=== PATIENT | male | born 1945 | race Caucasian/White ===

== ENCOUNTER 2023-10-21 08:35 | Day surgery (SDC) | payer MEDICARE, SELFPAY ==
[2023-10-21] VITALS (15 sets, daily range): BP systolic 118–171; BP diastolic 63–82; BMI 25.9
[2023-10-21 09:20] LABS: Hematocrit 33.4 % (39.0-52.0); Hemoglobin 10.8 g/dL (13.0-18.0); Mean Corp Hgb Conc. 32.3 g/dL (33.0-37.0); Mean Corpuscular Hgb 28.7 pg (27.0-31.0); Mean Corpuscular Volume 88.8 fL (80.0-94.0); Mean Platelet Volume 10.5 fL (7.4-10.4); Platelet Count 154 10^3/uL (130-400); Red Blood Cell Count 3.76 10^6/uL (4.70-6.10); Red Cell Dist. Width 19.9 % (11.5-14.5); White Blood Cell Count 9.4 10^3/uL (4.8-10.8)
[2023-10-21 09:30] LABS: INR 1.06; PT 14.1 Sec (11.4-14.6)
[2023-10-21 09:31] LABS: APTT 42.7 Sec (23.4-35.0)
[2023-10-21 09:45] LABS: Blood Urea Nitrogen 27 mg/dl (9-20); Carbon Dioxide 30 mmol/L (22-30); Chloride 96 mmol/L (98-107); Estimated Creatinine Clearance 9 ml/min; Glucose 97 mg/dl (70-99); Sodium 137 mmol/L (135-145); eGFR 8.74
[2023-10-21] MEDS: BACTROBAN NASAL 1 GRAM NASAL (10:06)
[2023-10-21] MEDS: NSS 500 IV (10:07)
[2023-10-21] MEDS: PERIDEX 0.12% ORAL RINSE 15 ML PO (10:07)
--- NOTE | 2023-10-21 11:31 | W.SUR.PREOP ---
Pre-Operative Surgical Note
-
I have examined this patient prior to the performance of the scheduled procedure.
The patient's condition is unchanged from the time of the current History and
Physical and the patient is able to undergo the scheduled procedure.
--- NOTE | 2023-10-21 12:34 | W.PA-PDMP ---
[place]-PDMP
-
Checked the [place]- Prescription Drug Monitoring Program website, no red flags identified; safe to proceed with prescription.
[2023-10-21 13:59] LABS: Glucose - Point of Care 114 mg/dl (70-99)
--- NOTE | 2023-10-21 15:13 | OR.RPT ---
Operative Report
Operative Report
Date of Operation: 10/21/2023
Pre Op Diagnosis: Upper extremity brachiobasilic AV fistula (status post 1st stage of planned 2 stage basilic vein transposition)
Post Op Diagnosis: Upper extremity brachiobasilic AV fistula (status post 1st stage of planned 2 stage basilic vein transposition)
Procedure: Revision of right upper extremity brachiobasilic AV fistula with transposition of the basilic vein (second stage BVT)
Surgeon: Baldemar Becerra III, MD
Hooker Inspector: Manjinder Escamilla MD PGY-1
Anesthesia: General
Complications: None
Estimated Blood Loss: Less than 20 cc
History and Indications for Procedure: 78-year-old male status post first stage of a planned two-stage basilic vein transposition. We brought him to the operating room for revision and superficialization.
Procedure in Detail: Killian Luis was correctly identified and placed supine on the operating table. After adequate induction of anesthesia the right arm was abducted 90 degrees. A timeout procedure was performed with the nursing and anesthesia
staff confirming the patient's identity and the nature and laterality of the procedure. The basilic vein was marked in the upper arm with ultrasound guidance. The arm was then circumferentially prepped and draped in the usual sterile fashion. We
made an incision over the medial upper arm. The entire basilic vein was dissected with careful sharp dissection. All branches were ligated and divided between ties and metal clips. The vein was good caliber along the entire course and had an
excellent thrill. Once the entire vein had been carefully dissected we then created a gentle curved tunnel lateral to the incision over the bicep with a large clamp. Proximal control was obtained on the vein with a curved profunda clamp. The vein
was marked and then transected near the arterial anastomosis. The vein was then brought through the tunnel carefully. The two ends of the vein were anastomosed to one another in an end-to-end fashion using a running 7-0 Prolene suture. At the
completion of the anastomosis the clamp was released and flow restored through the fistula. There was an excellent thrill in the tunnel. The suture line was inspected for hemostasis and this was achieved. The wound was irrigated with warm saline
solution. Hemostasis was achieved in the wound bed. The wound was then closed in multiple layers and sterile dressings applied. The patient had an easily palpable thrill in the tunnel and a palpable radial pulse at the wrist at the conclusion of the
case.
Attestation: I was present and responsible for the entire procedure
Signed:
Baldemar Becerra III, MD
[facility] Vascular Surgery
[phone] (qgsk)
--- NOTE | 2023-10-21 15:21 | W.IMMPOSTOP ---
Surgical Immed Post Op Note
-
Primary Surgeon: Baldemar Becerra III, MD
Assisting Surgeon: Manjinder Escamilla MD
Pre-op Diagnosis: AV Fistula
Post-op Diagnosis: AV Fistula s/p superficilization
Procedure Performed: Brachiobasilic superficilization (Stage 2)
Anesthesia Type: General
Specimen / Cultures: NA
Estimated Blood Loss: 12cc
Complications: None
Operative Findings: Fistula tunneled superficially through SubQ tissue and basilic vein re-anastamosed in an end-end fashion using 7-0 prolene. No complications.
== END 2023-10-21 15:45 | disposition home or self-care (01) ==
LOC: CATH 08:35
PROVIDERS: ATTENDING PHYSICIAN Surgery Vascular Surgery; FAMILY PHYSICIAN Internal Medicine
DX: I13.11 Hypertensive heart and chronic kidney disease without heart failure, with stage 5 chronic kidney disease, or end stage renal disease (principal); N18.6 End stage renal disease; Z49.01 Encounter for fitting and adjustment of extracorporeal dialysis catheter; J44.9 Chronic obstructive pulmonary disease, unspecified; E11.22 Type 2 diabetes mellitus with diabetic chronic kidney disease; Z72.0 Tobacco use
CPT/HCPCS: 36832; 80048; 82962; 85027; 85610; 85730; 86850; 86900; 86901

== ENCOUNTER → 2023-11-04 13:02 | Outpatient (REF) | payer MEDICARE, SELFPAY | LOC: RAD 13:02 | PROVIDERS: ATTENDING PHYSICIAN Physician Assistant; FAMILY PHYSICIAN Internal Medicine | DX: I77.0 Arteriovenous fistula, acquired (principal) | CPT/HCPCS: 93990 ==

== ENCOUNTER → 2023-11-26 09:44 | Outpatient (REF) | payer MEDICARE, SELFPAY | LOC: RAD 09:44 | PROVIDERS: ATTENDING PHYSICIAN Surgery Vascular Surgery; FAMILY PHYSICIAN Internal Medicine | DX: I71.43 Infrarenal abdominal aortic aneurysm, without rupture (principal); I77.9 Disorder of arteries and arterioles, unspecified; I65.23 Occlusion and stenosis of bilateral carotid arteries | CPT/HCPCS: 76770; 93880; 93922; 93925 ==

== ENCOUNTER → 2024-01-05 10:29 | Outpatient (REF) | payer MEDICARE, SELFPAY ==
--- NOTE | 2024-01-05 11:11 | PTCARENOTE ---
1033 Brought to patient care area via wheelchair. Patient identifed. Right chest dialysis catheter in place, functioning fistula in upper arm.
--- NOTE | 2024-01-05 11:13 | PTCARENOTE ---
1045 Catheter pulled as per order by IRAD technologist and site dressed. Instruction to stay for observation.
== END ==
LOC: RADI 10:29
PROVIDERS: ATTENDING PHYSICIAN Specialist
DX: Z49.01 Encounter for fitting and adjustment of extracorporeal dialysis catheter (principal)
CPT/HCPCS: 36589

== ENCOUNTER → 2024-01-28 12:45 | Outpatient (REF) | payer MEDICARE, SELFPAY | LOC: RAD 12:45 | PROVIDERS: ATTENDING PHYSICIAN Surgery Vascular Surgery; FAMILY PHYSICIAN Internal Medicine | DX: I77.0 Arteriovenous fistula, acquired (principal) | CPT/HCPCS: 93990 ==

== ENCOUNTER → 2024-03-26 10:37 | Outpatient (REF) | payer MEDICARE, SELFPAY ==
--- NOTE | 2024-03-26 11:33 | PTCARENOTE ---
tunneled hd cath removed bedside by Malik Davison RTR. tolerated well. dressing CDI after 10 mins. instructed patient to call with concerns. given general discharge instructions.
== END ==
LOC: RADI 10:37
PROVIDERS: ATTENDING PHYSICIAN Student in an Organized Health Care Education/Training Program; FAMILY PHYSICIAN Internal Medicine
DX: Z49.01 Encounter for fitting and adjustment of extracorporeal dialysis catheter (principal); N18.6 End stage renal disease
CPT/HCPCS: 36589

== ENCOUNTER → 2024-05-12 14:45 | Outpatient (REF) | payer MEDICARE, SELFPAY | LOC: DHVS 14:45 | PROVIDERS: ATTENDING PHYSICIAN Surgery Vascular Surgery; FAMILY PHYSICIAN Internal Medicine | DX: I71.43 Infrarenal abdominal aortic aneurysm, without rupture (principal) | CPT/HCPCS: 76770 ==

== ENCOUNTER → 2024-11-03 10:34 | Outpatient (REF) | payer OTHER, MEDICARE, SELFPAY | LOC: OLAB 10:34 | PROVIDERS: ATTENDING PHYSICIAN Specialist | DX: N18.6 End stage renal disease (principal) | CPT/HCPCS: 36415; 84132 ==

== ENCOUNTER → 2024-11-11 08:53 | Outpatient (REF) | payer MEDICARE, SELFPAY | LOC: DHVS 08:53 | PROVIDERS: ATTENDING PHYSICIAN Registered Nurse; FAMILY PHYSICIAN Surgery Vascular Surgery | DX: I77.9 Disorder of arteries and arterioles, unspecified (principal); I65.23 Occlusion and stenosis of bilateral carotid arteries; I71.43 Infrarenal abdominal aortic aneurysm, without rupture | CPT/HCPCS: 76770; 93880; 93922; 93925 ==

== ENCOUNTER → 2024-11-30 06:47 | Outpatient (REF) | payer MEDICARE, SELFPAY | LOC: RAD 06:47 | PROVIDERS: ATTENDING PHYSICIAN Registered Nurse; FAMILY PHYSICIAN Internal Medicine | DX: I71.43 Infrarenal abdominal aortic aneurysm, without rupture (principal) | CPT/HCPCS: 74174; Q9967 ==

== ENCOUNTER 2025-01-07 07:04 | Inpatient (IN) | payer MEDICARE, SELFPAY ==
[2024-12-30 09:14] VITALS: BMI 24.8
[2024-12-30 09:56] LABS: % Basophils 0.7 % (0-2); % Eosinophils 5.1 % (0-6); % Immature Granulocytes 0.1 % (0-0.5); % Lymphocytes 18.7 % (20.5-51.1); % Monocytes 11.4 % (1.7-9.3); Absolute Basophils 0.1 10^3/uL (0-0.2); Absolute Eosinophils 0.4 10^3/uL (0-0.7); Absolute Lymphocytes 1.3 10^3/uL (1.2-3.4); Absolute Monocytes 0.8 10^3/uL (0.1-0.6); Absolute Neutrophils 4.5 10^3/uL (1.4-6.5); Blood Urea Nitrogen 32 mg/dl (9-20); Calcium 9.2 mg/dl (8.4-10.2); Carbon Dioxide 38 mmol/L (22-30); Chloride 92 mmol/L (98-107); Estimated Creatinine Clearance 8 ml/min; Glucose 97 mg/dl (70-99); Hematocrit 37.2 % (39.0-52.0); Hemoglobin 11.7 g/dL (13.0-18.0); Mean Corp Hgb Conc. 31.5 g/dL (33.0-37.0); Mean Corpuscular Hgb 32.6 pg (27.0-31.0); Mean Corpuscular Volume 103.6 fL (80.0-94.0); Mean Platelet Volume 10.1 fL (7.4-10.4); Nucleated Red Blood Cells % 0 % (-); Platelet Count 148 10^3/uL (130-400); Potassium 4.9 mmol/L (3.5-5.1); Red Blood Cell Count 3.59 10^6/uL (4.70-6.10); Red Cell Dist. Width 15.2 % (11.5-14.5); Sodium 143 mmol/L (135-145); eGFR 7.36
[2024-12-30 10:02] LABS: INR 0.99; PT 13.6 Sec (11.4-14.6)
[2024-12-30 10:03] LABS: APTT 35.6 Sec (23.4-35.0)
[2025-01-07] VITALS (11 sets, daily range): BP systolic 122–167; BP diastolic 55–82; BMI 24.5
[2025-01-07] MEDS: BACTROBAN NASAL 1 GRAM NASAL (08:06)
[2025-01-07] MEDS: PERIDEX 0.12% ORAL RINSE 15 ML PO (08:07)
[2025-01-07] MEDS: VENTOLIN NEBULES 2.5 MG INH ×2 (08:26→15:27)
[2025-01-07 10:01] LABS: ACT-LR - POC 252 Seconds (116-155)
[2025-01-07 10:10] LABS: Glucose - Point of Care 124 mg/dl (70-99)
[2025-01-07 10:58] LABS: ACT-LR - POC 287 Seconds (116-155)
[2025-01-07 11:05] LABS: Glucose - Point of Care 119 mg/dl (70-99)
[2025-01-07 11:40] LABS: Glucose - Point of Care 131 mg/dl (70-99)
--- NOTE | 2025-01-07 11:47 | OR.RPT ---
Operative Report
Operative Report
Date of Operation: 01/07/2025
Pre Op Diagnosis:
1. Abdominal aortic aneurysm, juxtarenal
2. End-stage renal disease requiring hemodialysis
Post Op Diagnosis:
1. Abdominal aortic aneurysm, juxtarenal
2. End-stage renal disease requiring hemodialysis
Procedure:
1. Aortic aneurysm repair using Endologix ALTO device:
34 mm main body (right femoral access)
28 mm x 140 mm Ovation limb (right iliac)
14 mm x 120 mm, 12 mm x 160 mm Ovation limbs (left iliac)
2. Balloon angioplasty of right common iliac artery to facilitate endovascular device delivery
3. Diagnostic aortobiiliac arteriogram
4. Ultrasound-guided bilateral percutaneous common femoral artery access
5. Bilateral Pro-glide femoral artery access closure
Surgeon: Baldemar Becerra III, MD
Industrial Organization Manager: Nigel Jensen MD PGY1
Anesthesia: General
Complications: None
Estimated Blood Loss: 30 cc
History and Indications for Procedure: 79-year-old male with juxtarenal abdominal aortic aneurysm.
Procedure in Detail: Killian Luis was correctly identified and placed supine on the operating table. After adequate induction of anesthesia the abdomen, pelvis and bilateral groins were positioned, prepped and draped in the usual sterile
fashion. Preoperative antibiotics were administered. A timeout procedure was performed with the nursing and anesthesia staff confirming the patients identity as well as the nature and laterality of the procedure.
Under ultrasound guidance, bilateral femoral artery sheath access was obtained. The arteries were patent and without calcification anteriorly. Some calcified plaque was identified bilaterally along the posterior wall. Ultrasound images of the
femoral arteries were saved to the medical record. A pre-close technique was performed bilaterally with 2 offset Proglide closure devices. The sutures were secured and tucked under surgical towels for use at the end of the case. An 8 Vietnamese sheath
was placed on the right. An 11 Vietnamese sheath was placed on the left. The patient was systemically heparinized. Arteriograms were performed retrograde from the bilateral femoral sheaths to evaluate the iliac bifurcations. The internal iliac
arteries bilaterally were occluded at their origins but filled distally through collateral circulation.
From the right femoral access KMP catheter and Bentson wire were advanced to the proximal descending thoracic aorta. The wire was exchanged out through the KMP catheter for a Lunderquist wire. From the left femoral access a Glidewire was advanced
into the abdominal aorta. A marker pigtail catheter was then placed for angiographic purposes. Over the Lunderquist wire an 8 mm x 4 cm angioplasty balloon was used to treat the distal common iliac artery and iliac bifurcation at the region of
calcified stenosis to facilitate subsequent endovascular device delivery.
The 34 mm ALTO aortic main body device was then loaded onto the right femoral Lunderquist wire after removing the initial femoral sheath. The delivery system and aortic main body were oriented to the desired position. The delivery system was
advanced into the abdominal aorta. An aortogram was performed and identified the origin of the superior mesenteric artery. The renal artery was occluded and the patient was on dialysis. The planned approach was to land this device just distal to
the superior mesenteric artery margin to obtain proximal seal. The delivery system was then positioned such that the radiopaque fabric markers were just below the superior mesenteric artery.
The outer sheath was then retracted until the knob met the handle. The first segment of the suprarenal fixation was then deployed by turning the yellow release knob and pulling. I removed the white From the balloon injection port and inflated the
integrated balloon with 10 cc of 4:1 saline:contrast to open the mid crown. I then completely deflated the integrated balloon.
Using the radiopaque markers for orientation, the C-arm was positioned to eliminate parallax. Another aortogram was performed under magnification. The main body was then precisely positioned below the superior mesenteric artery. The pigtail catheter
was pulled down into the AAA away from the suprarenal fixation stent. With the main body in the desired location the remainder of the suprarenal fixation stent was deployed by pulling the second release knob.
The polymer was prepared on the back table. The green fill cap was then removed from the polymer injection port on the handle and the fill syringe was attached to it.The autoinjector was connected to the fill syringe and polymer was instilled.
Fluoro was used to intermittently observe filling of the main body with polymer. A timer was started to keep track of the polymer set time.
A glidewire was introduced through the pigtail catheter from the left femoral access. Using a KMP catheter and a glidewire, contralateral gate access was obtained. The catheter was spun in the main body to confirm proper position. The glidewire and
catheter were then advanced proximally. The wire was exchanged out for a floppy tip Amplatz wire. A 14 mm x 120 Ovation iliac limb was then inserted over the stiff wire and advanced to the proper position with proper overlap. The limb was deployed
without difficulty under roadmap guidance with the distal end in the the common iliac artery. A retrograde arteriogram was then performed through the 11 Vietnamese sheath to clearly visualize the desired landing zone for the iliac extension.
Subsequently a 12 mm x 160 mm Ovation iliac limb was positioned and deployed, landing in the left external iliac artery.
At the 20 minute naresh for polymer fill the integrated balloon was used to profile of the proximal aortic seal zone.
The third release knob was pulled to release the catheter from the aortic main body. The catheter handle on the main body deployment system was retracted to reseat the nosecone in the delivery system outer sheath.
A retrograde arteriogram was then performed on the right with a pigtail catheter over the stiff wire. The desired iliac landing zone was visualized and lengths were measured for the ipsilateral iliac limb. A 28 mm x 140 mm Ovation iliac limb was
inserted on the right under fluoro. Proper overlap was obtained. The limb was deployed under roadmap guidance without difficulty.
12 mm x 40 mm angioplasty balloons were used to treat the bilateral limb overlap and proximal portions of the iliac limbs. The 12 mm balloons were carried down through the entire length of the iliac limbs bilaterally and profiled throughout. A
Coda balloon was then inserted on the right and the and distal seal zone was profiled. The balloon was readvanced into the main body and the Lunderquist wire removed. A pigtail catheter was inserted and advanced to the proximal main body.
A completion aortogram demonstrated an excellent technical result. The aneurysm was excluded. No endoleaks were seen. There was brisk flow through the stent and iliac limbs. The superior mesenteric artery was widely patent. The iliac limbs were
patent bilaterally.
The Proglide sutures were secured bilaterally after removing the sheaths and wires. Protamine was administered. Additional pressure was applied to the puncture sites bilaterally for 5 minutes. Hemostasis was achieved bilaterally.
Sterile dressings were applied.
The patient tolerated the procedure well and was taken to the PACU in stable condition.
Attestation: I was present and responsible for the entire procedure
Signed:
Baldemar Becerra III, MD
[facility] Vascular Surgery
[phone] (cell)
--- NOTE | 2025-01-07 11:48 | W.IMMPOSTOP ---
Surgical Immed Post Op Note
-
Primary Surgeon: Mariam
Assisting Surgeon: Mikey
Pre-op Diagnosis: AAA
Post-op Diagnosis: AAA
Procedure Performed: EVAR
Anesthesia Type: General
Specimen / Cultures: None
Estimated Blood Loss: 30 cc
Complications: None
Operative Findings: Endologix [place] device
[2025-01-07 11:55] LABS: Hematocrit 30.4 % (39.0-52.0); Hemoglobin 10.3 g/dL (13.0-18.0); Mean Corp Hgb Conc. 33.9 g/dL (33.0-37.0); Mean Corpuscular Hgb 34.2 pg (27.0-31.0); Mean Platelet Volume 10.2 fL (7.4-10.4); Platelet Count 157 10^3/uL (130-400); Red Blood Cell Count 3.01 10^6/uL (4.70-6.10); Red Cell Dist. Width 15.2 % (11.5-14.5); White Blood Cell Count 9.1 10^3/uL (4.8-10.8)
[2025-01-07] MEDS: SUBLIMAZE 50 MCG IV (11:55)
[2025-01-07 12:05] LABS: INR 1.11; PT 14.7 Sec (11.4-14.6)
[2025-01-07 12:06] LABS: APTT 36.5 Sec (23.4-35.0)
[2025-01-07] MEDS: ASPIR LOW (ENTERIC COATED) 81 MG PO (12:24)
[2025-01-07 12:31] LABS: Blood Urea Nitrogen 49 mg/dl (9-20); Calcium 8.3 mg/dl (8.4-10.2); Carbon Dioxide 32 mmol/L (22-30); Chloride 94 mmol/L (98-107); Estimated Creatinine Clearance 6 ml/min; Glucose 135 mg/dl (70-99); Sodium 136 mmol/L (135-145)
--- NOTE | 2025-01-07 13:15 | CON.INTV ---
Addendum entered and electronically signed by Tess Castillo MD 01/07/25 14:24:
Please note that on my review of chest x-ray, there may be a right upper lobe nodular infiltrate
Would recommend outpatient follow-up
Patient has seen pulmonary in the past (Fernandez-Iveth)
Original Note:
Consultation
Consultation Request
Date/Time Consultation Requested: 01/07/25
Date/Time Consultation Performed: 01/07/25
Reason for Consultation: Critical care
Medical History
-
History of Present Illness:
History obtained from the patient and also from reviewing the chart. Patient is an 79-year-old male with end-stage renal disease, hemodialysis, history of carotid stenosis, AAA infrarenal aneurysm. Patient has right upper extremity brachial
basilic AV fistula created in 2022 with revision in 2019 for. He is now status post EVAR on 01/07. Presently his primary complaint is back pain which is chronic in this position (supine), but denies any shortness of breath, nausea, abdominal pain,
diarrhea. He lives with his . He denies any recent falls. He denies any recent fevers. We are asked to help from critical care standpoint. Of note recent blood work shows potassium of 7.0. He did not receive any therapy in the PACU. He is
scheduled for dialysis later today per nursing
.
PMH: Hypertension, hyperlipidemia, infrarenal AAA aneurysm, diabetes, history of COPD/emphysema, history of prosthetic joint. Patient also has history of diastolic dysfunction, heart failure, history of insomnia. History of cholecystectomy, left
knee wrist placement, multiple back surgeries
Past Medical History
Past Medical History: None (See above)
Past Surgical History: None (See above)
Social History
Tobacco: Former Smoker ([id number] history of smoking, quit 2022)
Alcohol: None
Drug: None
Personal:
Living: With Family
Employment: Retired
Family History
Family History: Other (Father with heart disease, mother with heart failure. There is no history of lung cancer, blood clots)
Allergies / Home Medications
Allergies
Allergy/AdvReac Type Severity Reaction Status Date / Time
No Known Allergies Allergy Verified 01/07/25 07:46
Home Medications
�Medication �Instructions �Recorded �Confirmed �Last Taken �Type
albuterol sulfate 90 mcg/actuation 2 puff inhalation Q4H PRN 07/28/23 01/07/25 Unknown History
aerosol inhaler shortness of breath
amlodipine 5 mg tablet 5 mg PO HS 07/28/23 12/29/24 01/05/25 07:30 History
carvedilol 3.125 mg tablet 3.125 mg PO BID 07/28/23 12/29/24 01/05/25 07:30 History
rosuvastatin 10 mg tablet 10 mg PO HS 07/28/23 12/29/24 01/05/25 07:30 History
aspirin 81 mg capsule 81 mg PO DAILY 12/29/24 12/29/24 01/05/25 07:30 History
sevelamer carbonate 800 mg tablet 1,600 mg PO 0800,1300 12/29/24 01/07/25 01/06/25 12:00 History
sevelamer carbonate 800 mg tablet 2,400 mg PO 1800 12/29/24 12/29/24 01/05/25 07:30 History
Review of Systems
-
All other systems: Negative unless noted
Vitals / Labs / Diagnostic Testing
Vital Signs
Temp Pulse Resp BP Pulse Ox
97.6 F 57 19 140/59 91
01/07/25 12:30 01/07/25 12:45 01/07/25 12:45 01/07/25 12:45 01/07/25 12:45
Lab Data
01/07/25 11:44
01/07/25 11:44
Laboratory Results
01/07/25
11:43
PT 14.7 H
INR 1.11
APTT 36.5 H
Diagnostic Testing:
Physical Exam
-
HEENT: Normocephalic and Anicteric
Cardiovascular: S1/S2, Regular Rhythm, Murmur (n), Rub (n) and Peripheral Edema (n)
Respiratory: Wheeze (n), Rales (n), Rhonchi (n) and Non-Labored Respirations
GI: Soft, Non Distended and Non Tender
Neurology: Awake, Alert, Oriented, No Motor Deficits (Moves all extremities) and Other (Distal pulses trace, dopplerable. Groin intact, pulse intact)
Skin: Other (Right upper extremity AV fistula)
General: Comfortable
Assessment
-
79-year-old male with history of end-stage renal disease on hemodialysis, COPD/emphysema, hypertension who presents with status post EVAR 01/07. We are asked to help from critical care standpoint
S/p EVAR 01/07
Infrarenal aortic aneurysm (4.95cm)
ESRD, on HD
RUE AV graft
Hyperkalemia
Bilateral carotid stenosis
Conditions present prior to admission
Hypertension/hyperlipidemia
History of heart failure, diastolic dysfunction
Mild COPD, FEV1 76%
60+ pack year history of smoking quit 2022
History of bradycardia
Multiple back surgeries, chronic back pain
Plan/recommendations
At this time, patient is critically ill but stable. Primary complaint is back pain which she has had chronic, Multiple back surgeries in the past
Otherwise without other symptoms
Moving forward
Hyperkalemia noted per labs. Plan for dialysis later today, timing unclear
Presently with sinus bradycardia, bradycardia apparently chronic
A-line in place
Follow blood pressures per vascular protocol
Will give insulin, D50, bicarbonate
Will try to touch base with nephrology with regards to timing
Will also consider calcium gluconate
Repeat potassium pending dialysis
Bilateral groin intact, pulse intact, distal pulses intact
Right upper extremity brachiobasilic AV fistula with revision in 2023
Significant smoking history. Chest exam is clear. Patient only taking albuterol as needed, was on Trelegy in the past
Outpatient spirometry mild obstruction
CXR 12/30/2024 no acute findings although cannot rule out right upper lobe nodular process per my review
Outpatient EKG 12/28/2024 normal sinus rhythm
Obtain postoperative EKG
Reviewed with critical care nursing, respiratory care, vascular [employer]
TCCT 35 min
[2025-01-07] MEDS: DEXTROSE 50% SYRINGE 12.5 GRAMS IV (13:35)
[2025-01-07] MEDS: SODIUM BICARBONATE 50 MEQ IV (13:35)
[2025-01-07] MEDS: NOVOLIN R 7 UNITS IV (13:38)
[2025-01-07 13:48] LABS: Glucose - Point of Care 138 mg/dl (70-99)
--- NOTE | 2025-01-07 14:36 | W.CON.NEPH ---
Consultation
-
Date/Time Consultation Requested: January 07, 2025 at 12 PM
Date/Time Consultation Performed: January 07, 2025 at 2 PM
Requesting Provider: Dr. Becerra
Performing Provider: Dr. Holden
Reason for Consultation: ESRD
Medical History
-
Chief Complaint: ESRD and hyperkalemia
History of Present Illness:
79-year-old male with end-stage renal disease, hemodialysis, history of carotid stenosis, AAA infrarenal aneurysm. Patient has right upper extremity brachial basilic AV fistula created in 2022 with revision in 2019 for. He is now status post EVAR
on 01/07.
Renal consult for end-stage renal disease.
Potassium was 7 treated with insulin and glucose and bicarbonate.
EKG shows no arrhythmias.
Past Medical History
Hypertension, hyperlipidemia, infrarenal AAA aneurysm, diabetes, history of COPD/emphysema, history of prosthetic joint. Patient also has history of diastolic dysfunction, heart failure, history of insomnia. History of cholecystectomy, left knee
wrist placement, multiple back surgeries
Social History
Tobacco: Non-Smoker
Drug: None
Family History
Family History: Not Pertinent
Allergies / Home Medications
Allergy/AdvReac Type Severity Reaction Status Date / Time
No Known Allergies Allergy Verified 01/07/25 07:46
�Medication �Instructions �Recorded �Confirmed �Type
albuterol sulfate 90 mcg/actuation 2 puff inhalation Q4H PRN 07/28/23 01/07/25 History
aerosol inhaler shortness of breath
amlodipine 5 mg tablet 5 mg PO HS 07/28/23 12/29/24 History
carvedilol 3.125 mg tablet 3.125 mg PO BID 07/28/23 12/29/24 History
rosuvastatin 10 mg tablet 10 mg PO HS 07/28/23 12/29/24 History
aspirin 81 mg capsule 81 mg PO DAILY 12/29/24 12/29/24 History
sevelamer carbonate 800 mg tablet 1,600 mg PO 0800,1300 12/29/24 01/07/25 History
sevelamer carbonate 800 mg tablet 2,400 mg PO 1800 12/29/24 12/29/24 History
Review of Systems
-
No chest pain or shortness of breath no nausea vomiting
All other systems: Negative unless noted
Physical Exam
Vital Signs
Vital Signs
Temp Pulse Resp BP Pulse Ox
97.6 F 63 21 126/55 92
01/07/25 12:30 01/07/25 14:15 01/07/25 14:15 01/07/25 13:30 01/07/25 14:15
Lab Results
WBC 9.1 10^3/uL (4.8-10.8) 01/07/25 11:44
RBC 3.01 10^6/uL (4.70-6.10) L 01/07/25 11:44
Hgb 10.3 g/dL (13.0-18.0) L 01/07/25 11:44
Hct 30.4 % (39.0-52.0) L 01/07/25 11:44
Plt Count 157 10^3/uL (130-400) 01/07/25 11:44
Sodium 136 mmol/L (135-145) 01/07/25 11:44
Potassium 7.0 mmol/L (3.5-5.1) H* 01/07/25 11:44
Chloride 94 mmol/L (98-107) L 01/07/25 11:44
Carbon Dioxide 32 mmol/L (22-30) H 01/07/25 11:44
BUN 49 mg/dl (9-20) H 01/07/25 11:44
Creatinine 8.8 mg/dL (0.7-1.3) H* 01/07/25 11:44
eGFR 5.60 01/07/25 11:44
Glucose 135 mg/dl (70-99) H 01/07/25 11:44
Calcium 8.3 mg/dl (8.4-10.2) L 01/07/25 11:44
Physical Exam
General no acute distress
HEENT no cephalic atraumatic extraocular muscle intact no scleral icterus no JVD neck supple
lungs clear to auscultation bilateral
heart regular S1-S2 positive
abdomen soft nontender positive bowel sounds
extremities no edema pulses present bilateral
Neurologically nonfocal alert and oriented x 3
Skin no lesions no abrasions no petechiae
Psych normal affect no bizarre behavior
Data Reviewed
-
Labs: Labs Reviewed by me, Discussed with Physician and Discussed with Patient
Assessment/Plan
-
79-year-old male with end-stage renal disease, hemodialysis, history of carotid stenosis, AAA infrarenal aneurysm. Patient has right upper extremity brachial basilic AV fistula created in 2022 with revision in 2019 for. He is now status post EVAR
on 01/07.
Impression.
ESRD. Friday was a Friday
Hyperkalemia.
Status post EVAR.
Hypertension/stable.
COPD/stable
Plan.
Hemodialysis ordered for today
Potassium 7 status post bicarbonate and insulin dextrose.
2 potassium bath.
Ultrafiltration as tolerated for blood pressure.
Discussed with dialysis nurse
Total Time Spent with Patient (in minutes): 33
[2025-01-07] MEDS: RENVELA 1600 MG PO (14:39)
[2025-01-07 15:29] LABS: Glucose - Point of Care 119 mg/dl (70-99)
--- NOTE | 2025-01-07 15:35 | PTCARENOTE ---
Rec'd patient from PACU at 1315. [employer] notified of Potassium level of 7. 1 amp bicarb, 1/2 amp D50 and 7 units Insulin administered. Youth Specialist at bedside. Plan for HD today. Patient alert and oriented. Denies pain. SB with BBB, prolonged QT
interval on tele monitor. Rate in the 50's. +Murmur. B/l LE neurovascular checks wnl. +Doppler dp and pt pulses bilaterally. [place], cool. MAEx4. B/l groin sites intact. Right fistula +thrill/bruit. Weaned to 2L nc. Lung sounds diminished throughout.
Harsh, productive cough present. Oral suctioning as needed. Anuric. +BS. Appetite good. Tolerating liquids. Advanced to 2gNa, 2g K per order. VSS. Cardene gtt off. Left radial monica transduced and zeroed. Full assessment and care as charted on
worklist.
[2025-01-07] MEDS: HEPARIN 5000 UNITS SC (15:43)
[2025-01-07 16:25] LABS: Potassium 6.2 mmol/L (3.5-5.1)
[2025-01-07 16:32] LABS: Glucose - Point of Care 150 mg/dl (70-99)
[2025-01-07] MEDS: ROXICODONE 5 MG PO (18:37)
[2025-01-07 18:40] LABS: Glucose - Point of Care 155 mg/dl (70-99)
--- NOTE | 2025-01-07 20:00 | PTCARENOTE ---
Pt Aox3, VSS, NSR w/ bbb on monitor. Currently receiving dialysis. B/L groin incisions approximated with surgical glue, and soft to touch. LE pulses positive with doppler. Cardene restarted after dialysis. Pt c/o lower back pain 03/15.
[2025-01-07 20:09] LABS: Glucose - Point of Care 123 mg/dl (70-99)
[2025-01-07] MEDS: COREG 3.125 MG PO (21:32)
[2025-01-07] MEDS: CRESTOR 10 MG PO (21:32)
[2025-01-07] MEDS: NORVASC 5 MG PO (21:32)
[2025-01-07 21:35] LABS: Glucose - Point of Care 147 mg/dl (70-99)
[2025-01-07 22:09] LABS: Glucose - Point of Care 146 mg/dl (70-99)
[2025-01-08] VITALS: BP 120/48
--- NOTE | 2025-01-08 | PTCARENOTE ---
Cardene gtt off. pt SBP remains within parameters. Lower back pain has decreased with Tylenol. Groins and pulses remain intact.
[2025-01-08] MEDS: HEPARIN 5000 UNITS SC ×2 (00:46→07:49)
[2025-01-08 04:00] VITALS: BP 143/55
[2025-01-08 06:00] VITALS: BMI 25.1
[2025-01-08 07:01] LABS: INR 1.08; PT 14.3 Sec (11.4-14.6)
[2025-01-08 07:02] LABS: APTT 37.4 Sec (23.4-35.0)
[2025-01-08 07:24] LABS: Blood Urea Nitrogen 28 mg/dl (9-20); Calcium 8.7 mg/dl (8.4-10.2); Carbon Dioxide 27 mmol/L (22-30); Chloride 94 mmol/L (98-107); Estimated Creatinine Clearance 10 ml/min; Glucose 96 mg/dl (70-99); Magnesium 2.1 mg/dl (1.6-2.3); Phosphorus 5.9 mg/dl (2.5-4.5); Potassium 5.4 mmol/L (3.5-5.1); Sodium 133 mmol/L (135-145); eGFR 10.52
[2025-01-08 07:43] LABS: Hematocrit 28.3 % (39.0-52.0); Hemoglobin 9.5 g/dL (13.0-18.0); Mean Corp Hgb Conc. 33.6 g/dL (33.0-37.0); Mean Corpuscular Volume 98.3 fL (80.0-94.0); Mean Platelet Volume 10.3 fL (7.4-10.4); Platelet Count 147 10^3/uL (130-400); Red Blood Cell Count 2.88 10^6/uL (4.70-6.10); Red Cell Dist. Width 14.8 % (11.5-14.5); White Blood Cell Count 9.7 10^3/uL (4.8-10.8)
[2025-01-08] MEDS: RENVELA 1600 MG PO (07:48)
[2025-01-08] MEDS: COREG 3.125 MG PO (07:49)
[2025-01-08] MEDS: TYLENOL 650 MG PO (07:49)
[2025-01-08] MEDS: ASPIR LOW (ENTERIC COATED) 81 MG PO (07:49)
[2025-01-08 08:00] VITALS: BP 144/58
--- NOTE | 2025-01-08 08:08 | W.PN.VS ---
Today's Communication / Plan
-
d/c home
Assessment/Plan
-
s/p evar
d/c lines
oob
d/c home
Subjective Data
-
Date of Service: January 08, 2025
doing well
no complaints
eager to go home
Objective Data
-
Vital Signs
Temp Pulse Resp BP Pulse Ox
98.1 F 60 17 157/54 94
01/08/25 03:05 01/08/25 07:49 01/08/25 07:15 01/08/25 07:49 01/08/25 07:15
Intake and Output
01/07/25 01/08/25 01/09/25
06:59 06:59 06:59
Intake Total 795 / 795
Output Total 0 / 0
Balance 795 / 795
Intake:
Oral fluids 720 / 720
IV fluids (Total) 75 / 75
Cardene 75 / 75
Output:
Urine, Voided 0 / 0
Lab Results
01/08/25 06:38
01/08/25 06:38
Calcium 8.7 mg/dl (8.4-10.2) 01/08/25 06:38
Phosphorus 5.9 mg/dl (2.5-4.5) H 01/08/25 06:38
Magnesium 2.1 mg/dl (1.6-2.3) 01/08/25 06:38
Physical Exam
-
nt,nd,soft
groins intact
feet warm
good signals distally
--- NOTE | 2025-01-08 08:16 | PTCARENOTE ---
AAOx3. NSR with prolonged QT interval on tele. DAINA AV fistula +thrill/bruit. B/l LE neurovascular checks wnl. Groin sites intact. Pulse ox 95% on RA. Jessenia out. Patient oob in chair. Call gagnon within reach. Full assessment and care as charted on
worklist.
[2025-01-08 09:01] VITALS: BP 119/57
[2025-01-08 10:00] VITALS: BP 130/63
--- NOTE | 2025-01-08 10:10 | PTCARENOTE ---
Discharge paperwork completed. Patient demonstrating understanding of information. Awaiting son's arrival for discharge.
== END 2025-01-08 10:57 | disposition home or self-care (01) | DRG 268 ==
LOC: ICU 07:04
PROVIDERS: Nurse Practitioner Acute Care; ADMITTING PHYSICIAN Surgery Vascular Surgery; CONSULT PHYSICIAN Internal Medicine Critical Care Medicine; CONSULT PHYSICIAN Internal Medicine Nephrology; PRIMARYCARE PHYSICIAN Internal Medicine
PROC: 04V03DZ Restriction of Abdominal Aorta with Intraluminal Device, Percutaneous Approach (ICD-10-PCS; 2025-01-07)
PROC: 047C3ZZ Dilation of Right Common Iliac Artery, Percutaneous Approach (ICD-10-PCS; 2025-01-07)
PROC: B41D1ZZ Fluoroscopy of Aorta and Bilateral Lower Extremity Arteries using Low Osmolar Contrast (ICD-10-PCS; 2025-01-07)
DX: I71.43 Infrarenal abdominal aortic aneurysm, without rupture (principal); N18.6 End stage renal disease; I13.2 Hypertensive heart and chronic kidney disease with heart failure and with stage 5 chronic kidney disease, or end stage renal disease; I50.32 Chronic diastolic (congestive) heart failure; E11.22 Type 2 diabetes mellitus with diabetic chronic kidney disease; E87.5 Hyperkalemia; I65.23 Occlusion and stenosis of bilateral carotid arteries; G89.29 Other chronic pain; M54.9 Dorsalgia, unspecified; J43.9 Emphysema, unspecified; E78.5 Hyperlipidemia, unspecified; Z99.2 Dependence on renal dialysis; Z90.49 Acquired absence of other specified parts of digestive tract; Z87.891 Personal history of nicotine dependence; Z82.49 Family history of ischemic heart disease and other diseases of the circulatory system; Z79.82 Long term (current) use of aspirin
CPT/HCPCS: 34705; 36415; 71045; 71046; 76937; 80048; 82962; 83735; 84100; 84132; 85025; 85027; 85610; 85730; 86850; 86900; 86901; 87070; 93005; 94640; C1725; C1760; C1769; C1892; C1894; C2628; G0257; Q9967

== ENCOUNTER → 2025-02-03 13:13 | Outpatient (REF) | payer MEDICARE, SELFPAY | LOC: RAD 13:13 | PROVIDERS: ATTENDING PHYSICIAN Physician Assistant; FAMILY PHYSICIAN Internal Medicine | DX: I71.43 Infrarenal abdominal aortic aneurysm, without rupture (principal) | CPT/HCPCS: 74174; Q9967 ==